=== PATIENT | female | born 1990 | race Hispanic/Latino ===

== ENCOUNTER 2018-10-23 13:40 | Emergency (ER) | payer OTHER ==
[2018-10-23] MEDS ORDERED: METHYLPREDNISOLONE SOD SUCC 125MG/2ML VIAL ONE (14:23)
== END 2018-10-23 15:10 | disposition home or self-care (01) ==
LOC: EDH 13:40
DX: L51.9 Erythema multiforme, unspecified (principal); K12.1 Other forms of stomatitis; M79.642 Pain in left hand; M79.641 Pain in right hand; G43.909 Migraine, unspecified, not intractable, without status migrainosus; Z98.890 Other specified postprocedural states
CPT/HCPCS: 96372; 99283; J2930